=== PATIENT | female | born 1965 | race Caucasian/White ===

== ENCOUNTER → 2018-07-02 13:19 | Outpatient (CLI) | payer OTHER, SELFPAY ==
--- NOTE | 2018-07-02 13:28 | DI.RAD.S_ITS ---
PROCEDURE: XR LUMBAR SPINE 2-3V INDICATIONS: radiculating low back pain down left leg. TECHNIQUE: 3 views of the lumbar spine were acquired. COMPARISON: [facility], CR, SPINE LUMB 2 OR 3VW, 01/19/2015, 13:35. FINDINGS: Bones: No fracture or focal osseous destruction. Straightening of the normal cervical lordosis with endplate sclerosis and spurring. Mild lower facet arthropathy. No definite lumbar disc space narrowing is seen. Mild diffuse narrowing of the lower thoracic disc spaces Incidentally noted tubal ligation clips. 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 Overall, no interval progression. Lower lumbar facet arthropathy. Dictated by: Suresh Aldana M.D. on 07/02/2018 at 16:59 Approved by: Suresh Aldana M.D. on 07/02/2018 at 17:01
== END ==
PROVIDERS: Visit Provider Physician Assistant
DX: M51.16 Intervertebral disc disorders with radiculopathy, lumbar region (principal); M54.5 Low back pain; M47.26 Other spondylosis with radiculopathy, lumbar region
CPT/HCPCS: 72100

== ENCOUNTER → 2019-01-27 16:59 | Outpatient (CLI) | payer OTHER, SELFPAY ==
--- NOTE | 2019-01-27 17:00 | DI.MRI.S_ITS ---
PROCEDURE: MR LUMBAR SPINE WO CON INDICATIONS: LOW BACK PAIN TECHNIQUE: Noncontrast sagittal T1 spin echo and T2 fast echo, sagittal STIR, axial T1 and T2 fast spin echo through the lumbar spine. In cases with scoliosis, additional coronal T2 fast spin echo may be performed. COMPARISON: None. FINDINGS: Image quality: Excellent. Alignment and Curvature: There is normal bony alignment. Bone Marrow: Marrow is of normal overall signal. No acute vertebral body compression fractures. Spinal Cord: Conus medullaris terminates at the L1-L2 level. Visualized cord demonstrates normal signal and size. Paraspinous Soft Tissues: No paravertebral masses. T11-T12: No canal stenosis or foraminal stenosis. T12-L1: No canal stenosis or foraminal stenosis. L1-L2: Normal appearance. L2-L3: Normal appearance. L3-L4: Normal appearance. Mild facet hypertrophy. L4-L5: Mild disc bulge. No canal stenosis. Moderate left foraminal disc bulge mildly compressing on the exiting left L4 nerve root sleeve. Facet hypertrophy. L5-S1: No canal stenosis. Bilateral facet hypertrophy. Mild to moderate left foraminal narrowing with mild impression on the exiting left L5 nerve root sleeve. IMPRESSION: 1. No evidence of canal stenosis. 2. At L4-L5, and moderate left foraminal disc bulge mildly compresses the exiting left L4 nerve root sleeve. 3. L5-S1, there is left foraminal stenosis with mild impression on the exiting left L5 nerve root sleeve 4. Multilevel facet hypertrophy. Dictated by: Nicholas Green M.D. on 01/27/2019 at 17:44 Approved by: Nicholas Green M.D. on 01/27/2019 at 17:49
== END ==
PROVIDERS: Visit Provider Orthopaedic Surgery
DX: M51.26 Other intervertebral disc displacement, lumbar region (principal); M48.07 Spinal stenosis, lumbosacral region
CPT/HCPCS: 72148

== ENCOUNTER → 2020-11-09 07:34 | Outpatient (CLI) | payer OTHER, SELFPAY ==
[2020-11-09 08:11] LABS: Hematocrit 42.2 % (36-46); Hemoglobin 14.5 g/dL (12.0-16.0); Mean Corpuscular HGB Conc 34.4 % (30-36); Mean Corpuscular Hemoglobin 32.5 PG (26-34); Mean Corpuscular Volume 94.4 fL (80-100); Platelet Count 287 X10^3/uL (150-400); Red Blood Cell Count 4.47 X10^6/uL (4.0-5.2); Red Cell Distribution Width 12.7 % (11.6-14.8); White Blood Cell Count 7.7 X10^3/uL (4.5-11.0)
[2020-11-09 08:35] LABS: Alanine Aminotransferase 17 IU/L (<35); Albumin 4.3 g/dL (3.5-5.0); Albumin Globulin Ratio 1.5 (1.0-2.8); Alkaline Phosphatase 60 U/L (38-126); Aspartate Aminotransferase 25 IU/L (14-36); BUN Creatinine Ratio 26.7 (6-22); Bilirubin Total 0.7 mg/dL (0.2-1.3); Blood Urea Nitrogen 20 mg/dL (7-17); Calcium 9.1 mg/dL (8.4-10.2); Carbon Dioxide 27 mmol/L (22-32); Chloride 103 mmol/L (98-107); Cholesterol 286 mg/dL (140-199); Estimated Glomerular Filt Rate > 60.0 mL/min (>60); Globulin 2.9 g/dL (1.7-4.1); Glucose 117 mg/dL (70-100); HDL Cholesterol 83 mg/dL (40-60); HEMOLYSIS < 15 (0-50); LDL Cholesterol Calculated 174 mg/dL (<100); Sodium 137 mmol/L (137-145); Total Protein 7.2 g/dL (6.3-8.2); Triglycerides 147 mg/dL (35-150)
[2020-11-09 09:13] LABS: TSH w/ Reflex to FT4 4.45 uIU/mL (0.47-4.68)
[2020-11-13 16:08] LABS: Fecal Immunochemical Test Negative (Negative)
== END ==
PROVIDERS: PCP Registered Nurse Diabetes Educator; Referring Provider Registered Nurse Diabetes Educator; Visit Provider Registered Nurse Diabetes Educator
DX: Z00.00 Encounter for general adult medical examination without abnormal findings (principal)
CPT/HCPCS: 36415; 80053; 80061; 82274; 84443; 85027

== ENCOUNTER 2022-11-06 15:40 | Emergency (ER) | payer OTHER, MEDICAID, SELFPAY ==
[2022-11-06 16:00] VITALS: BP 185/82; PULSE 78; RESP 16; TEMP 36.7; O2SAT 96; BMI 23.6
--- NOTE | 2022-11-06 16:07 | DI.RAD.S_ITS ---
PROCEDURE: XR RIBS LT MIN 3V W CXR1V INDICATIONS: pain falls TECHNIQUE: 2 views of the left ribs were acquired, along with a single view chest. COMPARISON: None. FINDINGS: Surgical changes and devices: None. Bones and chest wall: No fractures or dislocations. No suspicious bony lesions. Overlying soft tissues appear unremarkable. Lungs and pleura: No pleural effusions or pneumothorax. Lungs appear clear. Mediastinum: Mediastinal contours appear normal. Heart size is normal. IMPRESSION: No acute displaced rib fracture identified. No pneumothorax. Dictated by: Herb Garrett M.D. on 11/06/2022 at 17:27 Approved by: Herb Garrett M.D. on 11/06/2022 at 17:29
--- NOTE | 2022-11-06 18:24 | ED.BACK ---
HPI - Back Pain/Injury General Chief Complaint: Back Pain/Injury Stated Complaint: lt side pain in ribs into lower back Time Seen by Provider: 11/06/22 18:14 Source: patient Related Data Home Medications Medication Instructions Recorded Confirmed No Known Home Medications 09/12/20 12/04/20 Allergies Allergy/AdvReac Type Severity Reaction Status Date / Time codeine Allergy Severe hives Verified 12/04/20 15:23 Patient History Medical History Dyslipidemia Impaired fasting blood sugar Low back pain Prolapse of female pelvic organs Social History Smoking Status: Former smoker alcohol intake: current Smoking Status: Former smoker alcohol intake frequency: 3 or more drinks per day Substance Use Type: does not use Exam Initial Vital Signs Initial Vital Signs: Vital Signs Temperature 98.1 F 11/06/22 16:00 Pulse Rate 78 11/06/22 16:00 Respiratory Rate 16 11/06/22 16:00 Blood Pressure 185/82 H 11/06/22 16:00 Pulse Oximetry 96 11/06/22 16:00 Oxygen Delivery Method Room Air 11/06/22 16:00 Course Orders Ordered: ED Orders 11/06/22 16:07 XR ribs LT min 3V w CXR1V Stat Vital Signs Vital signs: Vital Signs - 8 hr 11/06/22 16:00 Temperature 98.1 F Pulse Rate 78 Respiratory Rate 16 Blood Pressure 185/82 H Pulse Oximetry 96 Oxygen Delivery Method Room Air Discharge Plan Departure Prescriptions: No Action No Known Home Medications Referrals: Rah Macias ARNP [Primary Care Provider] -
--- NOTE | 2022-11-06 19:32 | ED.BACK ---
HPI - Back Pain/Injury <Cam Porter PA-C - Last Filed: 11/06/22 19:58> General Chief Complaint: Back Pain/Injury Stated Complaint: lt side pain in ribs into lower back Time Seen by Provider: 11/06/22 18:14 Source: patient History of Present Illness HPI Narrative: This is a 57-year-old female presents to the emergency department complaining of L sided rib and lumbar pain for the last couple of months. She states that the pain is ?unbearable? affecting the left ribs. States that she initially fell while ice skating which initially caused the pain. She denies any significant shortness of breath, chest pain, nausea, vomiting, or any other concerning signs or symptoms. Denies urinary or bowel incontinence, fevers, focal weakness, or saddle paresthesia. Related Data Home Medications Medication Instructions Recorded Confirmed No Known Home Medications 09/12/20 12/04/20 Allergies Allergy/AdvReac Type Severity Reaction Status Date / Time codeine Allergy Severe hives Verified 12/04/20 15:23 Review of Systems <Cam Porter PA-C - Last Filed: 11/06/22 19:58> Review of Systems Narrative: GENERAL: Denies chills, fatigue, malaise, fever, sweats. HEENT: Denies sinus pain, ear pain, sore throat, difficulty swallowing, dizziness. RESPIRATORY: Left rib pain, Denies dyspnea, cough, wheezing, hemoptysis, sputum. CARDIOVASCULAR: Denies chest pain, palpitations, orthopnea, edema, GASTROINTESTINAL: Denies nausea, vomiting, abdominal pain, diarrhea, constipation, melena. : Denies dysuria, frequency, incontinence, hematuria, urinary retention. MUSCULOSKELETAL: denies weakness, joint pain, or bony pain SKIN: Denies rash, skin lesions, or other NEUROLOGIC: Denies weakness, headache, numbness, change in speech, confusion, seizures, incoordination. PSYCHIATRIC: No concerning psychosocial issues. 12 point review of systems is negative except for those stated above Patient History <Cam Porter PA-C - Last Filed: 11/06/22 19:58> Medical History Dyslipidemia Impaired fasting blood sugar Low back pain Prolapse of female pelvic organs Social History Smoking Status: Former smoker alcohol intake: current Smoking Status: Former smoker alcohol intake frequency: 3 or more drinks per day Substance Use Type: does not use Exam <Cam Porter PA-C - Last Filed: 11/06/22 19:58> Narrative Exam Narrative: GENERAL: Well-developed patient, in mild distress. HEAD: Atraumatic. Normocephalic. EYES: Pupils equal round and reactive. Extraocular motions intact. No scleral icterus. No injection or drainage. ENT: Nose without bleeding, purulent drainage. Throat without erythema, tonsillar hypertrophy or exudate. Airway patent. NECK: Trachea midline. Non tender CARDIOVASCULAR: Regular rate and rhythm without murmurs, gallops, or rubs. RESPIRATORY: Tenderness to palpation to the left ribs. Clear to auscultation. Breath sounds equal bilaterally. No wheezes, rales, or rhonchi. GASTROINTESTINAL: Abdomen soft, non-tender, nondistended. EXTREMITIES: No edema or joint tenderness. BACK: Nontender without deformity or crepitance. No flank tenderness. NEURO: AOx3. SKIN: No rash or erythema of visible areas Initial Vital Signs Initial Vital Signs: Vital Signs Temperature 98.1 F 11/06/22 16:00 Pulse Rate 78 11/06/22 16:00 Respiratory Rate 16 11/06/22 16:00 Blood Pressure 185/82 H 11/06/22 16:00 Pulse Oximetry 96 11/06/22 16:00 Oxygen Delivery Method Room Air 11/06/22 16:00 <Gibran Boston DO - Last Filed: 11/08/22 06:42> Initial Vital Signs Initial Vital Signs: Vital Signs Temperature 98.1 F 11/06/22 16:00 Pulse Rate 78 11/06/22 16:00 Respiratory Rate 16 11/06/22 16:00 Blood Pressure 185/82 H 11/06/22 16:00 Pulse Oximetry 96 11/06/22 16:00 Oxygen Delivery Method Room Air 11/06/22 16:00 Course <Cam Porter PA-C - Last Filed: 11/06/22 19:58> Orders Ordered: ED Orders 11/06/22 16:07 XR ribs LT min 3V w CXR1V Stat Vital Signs Vital signs: Vital Signs - 8 hr 11/06/22 16:00 Temperature 98.1 F Pulse Rate 78 Respiratory Rate 16 Blood Pressure 185/82 H Pulse Oximetry 96 Oxygen Delivery Method Room Air <Gibran Boston DO - Last Filed: 11/08/22 06:42> Orders Ordered: ED Orders 11/06/22 16:07 XR ribs LT min 3V w CXR1V Stat Vital Signs Vital signs: Vital Signs - 8 hr 11/06/22 16:00 Temperature 98.1 F Pulse Rate 78 Respiratory Rate 16 Blood Pressure 185/82 H Pulse Oximetry 96 Oxygen Delivery Method Room Air MDM - Back Pain/Injury <Cam Porter PA-C - Last Filed: 11/06/22 19:58> Imaging Data Chest x-ray: Radiologist's Impression: [address] [address] XRay Report Signed Patient: Aurora Reed MR#: [id number] : 1965 Acct:[id number] Age/Sex: 57 / F Date of Service: 11/06/22 Loc: ED Accession Number: [id number] ?? Procedure: XR ribs LT min 3V w CXR1V Ordering Provider: Rui Armenta MD PROCEDURE:? XR RIBS LT MIN 3V W CXR1V ? INDICATIONS:? pain falls ? TECHNIQUE:? 2 views of the left ribs were acquired, along with a single view chest.? ? COMPARISON:? None. ? FINDINGS:? ? Surgical changes and devices:? None.? ? Bones and chest wall:? No fractures or dislocations.? No suspicious bony lesions.? Overlying soft tissues appear unremarkable.? ? Lungs and pleura:? No pleural effusions or pneumothorax.? Lungs appear clear.? ? Mediastinum:? Mediastinal contours appear normal.? Heart size is normal.? ? IMPRESSION:? No acute displaced rib fracture identified.? No pneumothorax. ? ? Dictated by: Herb Garrett M.D. on 11/06/2022 at 17:27 ? ? Approved by: Herb Garrett M.D. on 11/06/2022 at 17:29 ? MDM Narrative Medical decision making narrative: MDM * differential diagnosis includes but not limited to rib fracture rib contusion, pneumothorax, chest wall injury * Prior records reviewed: Patient has not been here for similar complaints in the past * My lab interpretation: None obtained * My imgaing interpretation: Rib x-ray negative for any fractures * Clinical Decision Rules/Scores evaluated: None * Independent discussions with: None ED Course: This is a 57-year-old female presents to the emergency department due to left-sided rib pain after falling while ice-skating a few months ago. She states that the pain has not improved. She denies any significant shortness of breath or any numbness throughout her body. She does denies any chest pains. Low concern for any kind of pneumothorax. Patient did not present with any concerning symptoms such as urinary or bowel incontinence, focal weakness, saddle paresthesia, or any other concerning signs or symptoms. Suspect rib contusion. Rib series negative for any fractures. Shared Decision Making: Discussed plan with patient who is comfortable plan for discharge Social Considerations: None Disposition: Discharged to home Discharge Plan Departure Patient Disposition: Home Clinical Impression: Contusion of rib Instructions: DI for Rib Contusion Activity Restrictions/Additional Instructions: Thank you for coming to the [facility] Emergency Department today. As discussed your rib x-rays came back negative for any kind of fractures. I suspect he 0; contusion, please read the attached instructions for more information about this. Please use ibuprofen Tylenol as needed for the pain. Please follow-up with your primary care provider for further evaluation pain continues. I hope you feel better soon. Prescriptions: No Action No Known Home Medications Referrals: Rah Macias ARNP [Primary Care Provider] - Stand Alone Forms: Patient Portal/API <Gibran Boston DO - Last Filed: 11/08/22 06:42> [facility] ED Attending Kassi Attestation: I was immediately available in the department for consultation. Documentation has been reviewed. I agree with assessment and plan.
[2022-11-06 20:01] VITALS: BP 158/74; PULSE 68; RESP 16; TEMP 36.3; O2SAT 98
== END 2022-11-06 20:00 | disposition home or self-care (01) ==
PROVIDERS: Emergency Provider Physician Assistant Medical; PCP Registered Nurse Diabetes Educator
DX: S20.212A Contusion of left front wall of thorax, initial encounter (principal); W00.0XXA Fall on same level due to ice and snow, initial encounter; Y93.21 Activity, ice skating
CPT/HCPCS: 71101; 99281; 99283

== ENCOUNTER → 2022-12-31 13:51 | Outpatient (CLI) | payer OTHER, MEDICAID, SELFPAY ==
--- NOTE | 2022-12-31 13:52 | DI.US.S_ITS ---
PROCEDURE: US EXTREMITY NONVASC LOWER LT INDICATIONS: Please eval for abscess vs. hematoma posterior distal thigh TECHNIQUE: Real-time scanning was performed of the left posterior thigh, with image documentation. COMPARISON: None. FINDINGS: Ultrasound was performed of the area of interest in the left posterior thigh There is a complex fluid collection measuring 9.3 x 1.8 x 6.0 cm in the area of concern, compatible with a hematoma. On Doppler ultrasound, there is no increased peripheral vascularity. IMPRESSION: 1. A 9.3 x 1.8 x 6.0 cm complex fluid collection in the posterior left thigh, compatible with hematoma in this patient with recent trauma. On Doppler ultrasound, there is no increased peripheral vascularity. Less likely, it could represent developing abscess. Recommend clinical correlation and follow-up. Dictated by: Johnny Pearson M.D. on 12/31/2022 at 16:39 Approved by: Johnny Pearson M.D. on 12/31/2022 at 16:43
== END ==
PROVIDERS: PCP Registered Nurse Diabetes Educator; Referring Provider Registered Nurse Diabetes Educator; Visit Provider Registered Nurse Diabetes Educator
DX: T14.8XXA Other injury of unspecified body region, initial encounter (principal); L08.9 Local infection of the skin and subcutaneous tissue, unspecified; M79.89 Other specified soft tissue disorders; M79.605 Pain in left leg
CPT/HCPCS: 76882

== ENCOUNTER → 2023-07-17 13:52 | Outpatient (CLI) | payer OTHER, MEDICAID, SELFPAY ==
--- NOTE | 2023-07-17 13:53 | DI.MG.S_ITS ---
BILATERAL DIGITAL DIAGNOSTIC MAMMOGRAM 3D/2D: 07/17/2023 CLINICAL: Diffuse left breast pain. Baseline exam. Family history of breast cancer. No prior exams were available for comparison. There are scattered areas of fibroglandular density in both breasts (category b / 25%-50% glandular tissue). There is a possible irregular asymmetry with an indistinct margin in the left breast at 3 o'clock posterior depth. This is not seen in additional views. This correlates as an incidental finding. No other significant masses, calcifications, or other findings are seen in either breast. Specifically, no finding to explain the patient's diffuse left breast pain. IMPRESSION: INCOMPLETE: NEEDS ADDITIONAL IMAGING EVALUATION The possible irregular asymmetry in the left breast is consistent with fibroglandular tissue and is indeterminate. An ultrasound is recommended. This was performed immediately following this exam. There is no abnormality seen in the left breast to correspond with the diffuse pain. Based on Tyrer-Cuzick model (a risk assessment model), the patient's lifetime risk is 22.3% and her 10 year risk is 8.6%. If a patient has an elevated risk, a more comprehensive evaluation should be considered and/or a referral to a genetic counselor. The [place] [employer], [place] [employer], and NCCN Guidelines advise the consideration of Breast MRI as an adjunct to screening mammography in patients whose Lifetime risk to develop breast cancer is 20% or higher. This exam was interpreted at Station ID: [id number]. NOTE: For mammograms, a report in lay terms will be sent to the patient. Approximately 15% of breast malignancies will not be visualized mammographically. In the management of a palpable breast mass, a negative mammogram must not discourage biopsy of a clinically suspicious lesion. Electronically Signed By: Paige cabello/:07/17/2023 14:40:30 ACR BI-RADS Category 0: Incomplete 3340F
--- NOTE | 2023-07-17 13:53 | DI.US.S_ITS ---
LIMITED ULTRASOUND OF LEFT BREAST: 07/17/2023 CLINICAL: Diffuse left breast pain. Comparison is made to exam dated: 07/17/2023 mammogram - [facility]. Color flow ultrasound of the left breast 3 o'clock region was performed. Adam scale images of the real-time examination were reviewed. No suspicious findings in the area of the left breast of possible asymmetry. There is a 1.1 cm oval cyst in the left breast at 3 o'clock middle depth. This oval cyst is anechoic with an abrupt boundary and posterior acoustic enhancement. This correlates as an incidental finding. Color flow imaging demonstrates that there is an adjacent vascularity. There also is a benign normal lymph node in the left breast at 3 o'clock posterior depth. This normal lymph node displays fatty hilum. This correlates as an incidental finding. Color flow imaging demonstrates that there is vascularity present. IMPRESSION: BENIGN The incidental 1.1 cm cyst in the left breast at 3 o'clock middle depth is consistent with a simple cyst and is benign. The incidental normal lymph node in the left breast at 3 o'clock posterior depth is consistent with a lymph node and is benign. There is no abnormality seen in the right breast to correspond with the possible mammography finding at 3 o'clock which is consistent with normal fibroglandular tissue. No explanation for breast pain. Return to annual mammogram screening schedule is recommended. Findings and recommendations were conveyed to the patient at time of exam. This exam was interpreted at Station ID: [id number]. Electronically Signed By: Paige cabello/:07/17/2023 15:21:20 letter sent: Normal Exam Ultrasound BI-RADS: 2 Benign
== END ==
PROVIDERS: PCP Registered Nurse Diabetes Educator; Referring Provider Registered Nurse Diabetes Educator; Visit Provider Registered Nurse Diabetes Educator
DX: R92.2 Inconclusive mammogram (principal); N63.20 Unspecified lump in the left breast, unspecified quadrant; N64.4 Mastodynia; N60.02 Solitary cyst of left breast
CPT/HCPCS: 76642; 77066; G0279

== ENCOUNTER → 2024-02-18 08:40 | Outpatient (CLI) | payer OTHER, MEDICAID, SELFPAY ==
--- NOTE | 2024-02-18 08:43 | DI.MRI.S_ITS ---
BREAST MRI OF BOTH BREASTS: 02/18/2024 CLINICAL: Elevated Tyrer- Cuzick Risk. Comparison is made to exams dated: 07/17/2023 ultrasound, 07/17/2023 mammogram - [facility], 07/09/2012 mammogram, and 04/01/2008 mammogram - [facility]. PROCEDURE: MR BREAST BI WO/W CON INDICATIONS: Elevated Tyrer-Cuzick Risk TECHNIQUE: The patient was placed prone in a dedicated breast imaging coil. Precontrast axial STIR and 3D FLASH without fat saturation sequences were obtained. Both before and after bolus injection of contrast, sequential 1-minute axial 3D FLASH with fat saturation sequences for 3 time points, with subtraction images and maximum intensity projections (MIP's) generated. Delayed sagittal FLASH images with fat saturation were also obtained. FINDINGS: Image quality: Diagnostic. There is scattered fibroglandular density. There is mild background parenchymal enhancement. Right breast: At the 12 o'clock position of the right breast anterior depth, there is an 8 x 8 millimeter oval circumscribed mass (15/66, 7/79) with possible dark internal septations and without washout kinetics. No other suspicious mass, non-mass enhancement, or focus. Left breast: Presumed cyst in the lateral breast posterior depth. Immediately posterior to the region at 3 o'clock, there is a focal region of non mass enhancement measuring about 2 centimeters (13/60). No suspicious mass or focus otherwise. Miscellaneous: No suspicious findings in the partially visualized anterior mediastinum and upper abdomen. There are no pathologically enlarged lymph nodes by size criteria. Computer-aided detection, including computer algorithm analysis of MRI image data for lesion detection and characterization, pharmacokinetic analysis, with further physician review for interpretation, was performed. IMPRESSION: INCOMPLETE: NEEDS ADDITIONAL IMAGING EVALUATION Right breast 12 o'clock 8 x 8 millimeter oval circumscribed mass with possible dark internal septation (15/66, 7/79). This is probably a fibroadenoma. A second-look ultrasound could be obtained. Left breast posterior depth 3 o'clock focal region of non mass enhancement spanning about 2 centimeters, probably asymmetric fibroglandular enhancement, probably benign. A six-month MRI is recommended. BIRADS 0 COMMENT: The imaging literature indicates that a negative contrast breast MRI examination has a high sensitivity and a moderate specificity for detecting and excluding invasive carcinomas to a detection threshold of 3-5 mm; nonetheless, appropriate clinical and mammographic follow-up are recommended. MRI is not sensitive for detecting DCIS (ductal carcinoma in situ) and may not detect large invasive neoplasms that show only minimal enhancement such as mucinous carcinoma. If there are suspicious calcifications or clinically worrisome palpable masses, then biopsy should still be considered. Invasive neoplasms can be hidden by co-existent and benign enhancement caused by mastitis, hormone therapy effects, radiation therapy, , and recent biopsy or surgery. False positive examinations can occur in a number of circumstances, including breasts that have recently been subject to invasive procedures and those that contain atypical ductal hyperplasia, hormonally stimulated glandular tissue, fat necrosis, or radial scars. This exam was interpreted at Station ID: [id number]. Electronically Signed By: Naeem Frey M.D. lc/:02/19/2024 07:37:24 letter sent: Additional Imaging Needed ACR BI-RADS Category 0: Incomplete 3340F
== END ==
LOC: MRI 08:41
PROVIDERS: PCP Registered Nurse Diabetes Educator; Referring Provider Registered Nurse Diabetes Educator; Visit Provider Registered Nurse Diabetes Educator
DX: Z91.89 Other specified personal risk factors, not elsewhere classified (principal); Z12.39 Encounter for other screening for malignant neoplasm of breast; N63.15 Unspecified lump in the right breast, overlapping quadrants
CPT/HCPCS: 77049; A9579

== ENCOUNTER → 2024-04-28 07:32 | Outpatient (CLI) | payer OTHER, MEDICAID, SELFPAY ==
--- NOTE | 2024-04-28 07:33 | DI.US.S_ITS ---
LIMITED ULTRASOUND OF RIGHT BREAST: 04/28/2024 CLINICAL: Patient returns today to evaluate a mass in the right breast seen on MRI 02-18-24. Comparison is made to exams dated: 02/18/2024 breast MRI, 07/17/2023 mammogram - [facility], 07/09/2012 mammogram, 04/01/2008 mammogram, and 11/19/2000 mammogram - [facility]. Color flow and real-time ultrasound of the right breast 12 o'clock region were performed. Adam scale images of the real-time examination were reviewed. There is a 0.9 cm x 0.6 cm x 0.5 cm oval mass with a circumscribed margin in the right breast at 12 o'clock, 4 cm from the nipple. This oval mass is hypoechoic. This correlates with mass seen on recent breast MRI 02/18/2024. Color flow imaging demonstrates that there is vascularity present. IMPRESSION: PROBABLY BENIGN Right breast 0.9 cm oval circumscribed mass at 12 o'clock, 4 cm from the nipple. Finding resembles a fibroadenoma and is probably benign. Recommend follow-up ultrasound in August 2024 when patient will be due for bilateral mammogram to demonstrate stability. Findings and recommendations were conveyed to the patient during today's evaluation. This exam was interpreted at Station ID: [id number]. Electronically Signed By: Jodie Quintero M.D., Ph.D. eb/:04/28/2024 09:16:32 letter sent: Followup Recommended Ultrasound BI-RADS: 3 Probably benign
== END ==
LOC: US 07:32
PROVIDERS: PCP Registered Nurse Diabetes Educator; Referring Provider Registered Nurse Diabetes Educator; Visit Provider Registered Nurse Diabetes Educator
DX: R92.8 Other abnormal and inconclusive findings on diagnostic imaging of breast (principal); N63.15 Unspecified lump in the right breast, overlapping quadrants
CPT/HCPCS: 76642

== ENCOUNTER → 2024-08-20 12:04 | Outpatient (CLI) | payer OTHER, SELFPAY ==
--- NOTE | 2024-08-20 12:04 | DI.RAD.S_ITS ---
PROCEDURE: XR CHEST 2V INDICATIONS: Cough TECHNIQUE: 2 views of the chest were acquired. COMPARISON: None. FINDINGS: Surgical changes and devices: None. Lungs and pleura: Lungs are clear. No pleural effusions or pneumothorax. Mediastinum: Mediastinal contours are normal. Heart size is normal. Bones and chest wall: No suspicious bony abnormalities. Soft tissues appear unremarkable. IMPRESSION: No acute cardiopulmonary abnormality is seen. Dictated by: Bar Olivier M.D. on 08/20/2024 at 15:18 Approved by: Bar Olivier M.D. on 08/20/2024 at 15:18
== END ==
PROVIDERS: PCP Registered Nurse Diabetes Educator; Referring Provider Nurse Practitioner Family; Visit Provider Nurse Practitioner Family
DX: R05.9 Cough, unspecified (principal)
CPT/HCPCS: 71046

== ENCOUNTER → 2024-09-09 16:21 | Outpatient (CLI) | payer OTHER, SELFPAY ==
--- NOTE | 2024-09-09 16:25 | DI.RAD.S_ITS ---
PROCEDURE: XR CHEST 2V INDICATIONS: Cough TECHNIQUE: 2 views of the chest were acquired. COMPARISON: Merged With [facility], CR, XR CHEST 2V, 08/20/2024, 12:19. FINDINGS: Surgical changes and devices: None. Lungs and pleura: Lungs are clear. No pleural effusions or pneumothorax. Mediastinum: Mediastinal contours are normal. Heart size is normal. Bones and chest wall: No suspicious bony abnormalities. Soft tissues appear unremarkable. IMPRESSION: No acute cardiopulmonary abnormality is seen. Dictated by: Lance Blackburn M.D. on 09/09/2024 at 16:42 Approved by: Lance Blackburn M.D. on 09/09/2024 at 16:43
== END ==
PROVIDERS: PCP Registered Nurse Diabetes Educator; Referring Provider Nurse Practitioner Family; Visit Provider Nurse Practitioner Family
DX: R05.9 Cough, unspecified (principal)
CPT/HCPCS: 71046

== ENCOUNTER → 2024-09-14 09:20 | Outpatient (CLI) | payer OTHER, SELFPAY ==
--- NOTE | 2024-09-14 09:21 | DI.US.S_ITS ---
LIMITED ULTRASOUND OF RIGHT BREAST AND AXILLA: 09/14/2024 CLINICAL: 6MO F/U RT BREAST NODULE 12:00 4CMFN. Comparison is made to exams dated: 09/14/2024 mammogram, 04/28/2024 ultrasound, 02/18/2024 breast MRI, and 07/17/2023 mammogram - [facility]. Color flow and real-time ultrasound of the right breast 12 o'clock, and axilla regions were performed. Adam scale images of the real-time examination were reviewed. There is a 1 cm x 0.6 cm x 0.5 cm oval mass with an indistinct margin in the right breast at 12 o'clock anterior depth 4 cm from the nipple. This oval mass is hypoechoic. This abnormality is stable to slightly increased in size and correlates with mammography and breast MRI findings. The abnormality appear more hypoechoic. Color flow imaging demonstrates that there is vascularity present. No significant abnormalities were seen sonographically in the right axilla. IMPRESSION: SUSPICIOUS The 1 cm mass in the right breast has a differential diagnosis of a fibroadenoma and is at a low suspicion for malignancy. The mass appears more hypoechoic with less defined margins and maybe slightly increased in size. An ultrasound guided biopsy is recommended. No enlarged right axillary lymph nodes. Exam findings were discussed with the patient. This exam was interpreted at Station ID: [id number]. Electronically Signed By: Nael Castellon M.D. slc/:09/14/2024 10:52:06 letter sent: Biopsy Required ACR BI-RADS Category 4A: Suspicious
--- NOTE | 2024-09-14 09:21 | DI.MG.S_ITS ---
BILATERAL DIGITAL DIAGNOSTIC MAMMOGRAM 3D/2D SHORT-TERM FOLLOW-UP: 09/14/2024 CLINICAL: Short term follow up of the right breast, due for bilateral imaging. Comparison is made to exams dated: 02/18/2024 breast MRI, 07/17/2023 mammogram - [facility], 07/09/2012 mammogram - [facility], and 04/28/2024 ultrasound - [facility]. There are scattered areas of fibroglandular density (category b / 25%-50% glandular tissue). There is a stable oval mass with an obscured and circumscribed margin in the right breast at 12 o'clock anterior depth. No other significant masses, calcifications, or other findings are seen in either breast. IMPRESSION: INCOMPLETE: NEED ADDITIONAL IMAGING EVALUATION The stable oval mass in the right breast is indeterminate. A targeted ultrasound is recommended and will immediately follow. Based on the Tyrer Cuzick model (a risk assessment model) the patient's lifetime risk is 17.9% and her 10 year risk is 7.1%. According to the ACR, ACS, and NCCN guidelines, an annual breast MRI exam along with mammogram is recommended if the patient's lifetime risk is 20% or greater. This exam was interpreted at Station ID: [id number]. NOTE: For mammograms, a report in lay terms will be sent to the patient. Approximately 15% of breast malignancies will not be visualized mammographically. In the management of a palpable breast mass, a negative mammogram must not discourage biopsy of a clinically suspicious lesion. Electronically Signed By: Nael Castellon M.D. slc/:09/14/2024 10:19:55 letter sent: Additional Imaging Needed ACR BI-RADS Category 0: Incomplete: Need Additional Imaging Evaluation
== END ==
PROVIDERS: PCP Registered Nurse Diabetes Educator; Referring Provider Registered Nurse Diabetes Educator; Visit Provider Registered Nurse Diabetes Educator
DX: R92.8 Other abnormal and inconclusive findings on diagnostic imaging of breast (principal); N63.15 Unspecified lump in the right breast, overlapping quadrants; Z87.898 Personal history of other specified conditions
CPT/HCPCS: 76642; 77066; G0279

== ENCOUNTER → 2024-10-13 08:00 | Outpatient (CLI) | payer OTHER, SELFPAY ==
--- NOTE | 2024-10-13 | PATH_ITS ---
[facility] Accession Number: [id number] No. of containers..01 Tissue . 01 Material submitted: . breast - RIGHT BREAST MASS 12:00 . 01 Clinical history: . RIGHT BREAST MASS 12:00 4CMFN . 01 Diagnosis: RIGHT BREAST, 12 O'CLOCK, BIOPSY: Features consistent with fibroadenoma, see comment. Negative for atypical hyperplasia, carcinoma in-situ, and invasive carcinoma. MRV 10/15/2024 1643 Local . 01 Comment: Sections show a fibroadenoma with focal involvement by benign fibrocystic changes, including adenosis and fibrosis. Immunohistochemistry is performed for cytokeratin MARY, p63, and myosin and all are appropriately positive, supporting the above diagnosis. . Technical Note: The immunohistochemical stains reported were performed with appropriate controls at [facility] ([address], [facility] [address]). This test was developed, and the performance characteristics were validated by [facility]. It has not been cleared or approved by the Food and Drug Administration. . 01 Electronically signed: . Shawanda Pineda DO, Pathologist NPI- [id number] . 01 Gross description: . Received is one formalin-filled container labeled with the patient's name labeled right breast 12 o'clock 4 cm FN. The specimen is received with plastic filter in container and sample in container, and consists of multiple yellow-sarmiento to sarmiento-ferrell pieces of soft tissue which range in size from 0.1 x 0.1 x 0.1 cm to ___.3 x 0.4 x 0.2 cm. All fragments are totally submitted in cassette A1. . The specimen was removed on 10/13/2024 at 0958 hours. Time in formalin not provided. Cold ischemic time cannot be calculated. Total fixation time approximately 16 hours. ([id number]) /TASIA 10/14/2024 0621 Local . 01 Pathologist provided ICD-10: N63.10 . 01 CPT . 221444, H00974, H01036 Performed at: [address] [address], [place], [place] [id number] MD Bar Yost MD Phone: [phone]
--- NOTE | 2024-10-13 08:02 | DI.US.S_ITS ---
ULTRASOUND GUIDED BIOPSY RIGHT BREAST USING VACUUM DEVICE WITH MARKING DEVICE INSERTED: 10/13/2024 CLINICAL: Right breast mass. PATIENT CONSENT: Risks (minor bleeding, infection, vasovagal reaction and repeat procedure), benefits and alternatives were explained to the patient and written informed consent was obtained. Correlation is made to exams dated: 09/14/2024 ultrasound, 09/14/2024 mammogram, 04/28/2024 ultrasound, 02/18/2024 breast MRI, 07/17/2023 mammogram - [facility], and 07/09/2012 mammogram - [facility] [place]. An ultrasound guided biopsy using real-time ultrasound was performed for the 1 cm x 0.6 cm x 0.5 cm mass located in the right breast at 12 o'clock anterior depth 4 cm from the nipple. The skin was prepped in the usual manner. The abnormality was approached from the lateral aspect. A biopsy needle was placed adjacent to the abnormality under ultrasound guidance. Once the needle was documented to be in the correct location, a specimen was obtained using a vacuum assisted device. A clip was inserted into the biopsy cavity. The specimen was sent to the laboratory for pathological analysis. IMPRESSION: ULTRASOUND GUIDED BIOPSY BENIGN Ultrasound guided biopsy of the 1 cm x 0.6 cm x 0.5 cm mass in the right breast at 12 o'clock anterior depth 4 cm from the nipple was successful. Pathology indicates benign fibroadenoma (FA). Pathology results are concordant with imaging findings. Recommend return to routine annual mammogram screening (due September 2025). This exam was interpreted at Station ID: [id number]. Mathew Quintero M.D., Ph.D. jayesh/:10/19/2024 08:07:40
[2024-10-13 08:46] LABS: Appearance Urine UA CLEAR; Bilirubin Urine UA NEGATIVE (NEGATIVE); Color Urine UA YELLOW; Glucose Urine UA NEGATIVE (Negative); Ketones Urine UA NEGATIVE (NEGATIVE); Leukocyte Esterase Urine UA NEGATIVE (NEGATIVE); Nitrite Urine UA NEGATIVE (Negative); Occult Blood Urine UA NEGATIVE (Negative); Protein Urine UA NEGATIVE (Negative); Specific Gravity Urine UA <=1.005 (1.000-1.035); Urobilinogen Urine UA 0.2 E.U./dL (0.2)
[2024-10-13 08:56] LABS: Urine Volume 10mL (spun); pH Urine UA 5.5 (4.5-8.0)
[2024-10-13 08:56] LABS: Add Manual Diff / Slide Review NO; Basophils Absolute Auto 100 /uL (0-100); Basophils Percent Auto 0.7 % (0-2); Eosinophils Absolute Auto 500 /uL (0-450); Eosinophils Percent Auto 6.2 % (2-4); Hematocrit 41.5 % (36-46); Hemoglobin 14.4 g/dL (12.0-16.0); Lymphocytes Absolute Auto 2300 /uL (1100-4500); Lymphocytes Percent Auto 28.9 % (25-40); Mean Corpuscular HGB Conc 34.6 % (30-36); Mean Corpuscular Volume 95.2 fL (80-100); Monocytes Absolute Auto 600 /uL (0-900); Neutrophils Absolute Auto 4500 /uL (1500-7000); Neutrophils Percent Auto 56.2 % (50-75); Platelet Count 269 X10^3/uL (150-400); Red Blood Cell Count 4.36 X10^6/uL (4.0-5.2); Red Cell Distribution Width 13.4 % (11.6-14.8); White Blood Cell Count 8.1 X10^3/uL (4.5-11.0)
[2024-10-13 08:57] LABS: Bacteria Urine None Seen; Culture Indicated Urine Cult Not Indicated; RBC Urine None Seen (0-5/HPF); Squamous Epithelial Cell Urine None Seen (0-5/HPF); WBC Urine None Seen (0-5/HPF)
[2024-10-13 09:19] LABS: Erythrocyte Sedimentation Rate 6 MM/HR (0-20)
[2024-10-13 09:25] LABS: Alanine Aminotransferase 32 IU/L (<35); Albumin 4.4 g/dL (3.5-5.0); Albumin Globulin Ratio 1.8 (1.0-2.8); Alkaline Phosphatase 47 U/L (38-126); Aspartate Aminotransferase 32 IU/L (14-36); BUN Creatinine Ratio 8.4 (6-22); Bilirubin Total 0.6 mg/dL (0.2-1.3); Blood Urea Nitrogen 7 mg/dL (7-17); C-Reactive Protein Quant < 0.5 mg/dL (<1.0); Calcium 9.4 mg/dL (8.4-10.2); Carbon Dioxide 26 mmol/L (22-32); Chloride 103 mmol/L (98-107); Estimated Glomerular Filt Rate > 60 mL/min (>60); Globulin 2.5 g/dL (1.7-4.1); Glucose 104 mg/dL (70-100); HEMOLYSIS < 15 (0-50); Potassium 3.8 mmol/L (3.4-5.1); Sodium 138 mmol/L (137-145); Total Protein 6.9 g/dL (6.3-8.2)
[2024-10-14 17:36] LABS: DNA (DS) Antibody <1 IU/mL (0-9); SS A Ro Sjogrens Antibody < 0.2 AI (0.0-0.9); SS B La Sjogrens Antibody < 0.2 AI (0.0-0.9)
[2024-10-16 15:11] LABS: ANA Screen, IFA Negative (.)
== END ==
PROVIDERS: PCP Registered Nurse Diabetes Educator; Referring Provider Registered Nurse Diabetes Educator; Visit Provider Registered Nurse Diabetes Educator
DX: R92.8 Other abnormal and inconclusive findings on diagnostic imaging of breast (principal); D24.1 Benign neoplasm of right breast; R21 Rash and other nonspecific skin eruption; M32.9 Systemic lupus erythematosus, unspecified
CPT/HCPCS: 19083; 36415; 80053; 81001; 83516; 85025; 85651; 86038; 86140; 86225; 86235

== ENCOUNTER → 2024-11-19 15:10 | Outpatient (CLI) | payer OTHER, SELFPAY ==
--- NOTE | 2024-11-19 15:11 | DI.RAD.S_ITS ---
PROCEDURE: XR CHEST 2V INDICATIONS: Cough x 3 weeks, worsening TECHNIQUE: 2 views of the chest were acquired. COMPARISON: [facility], CR, XR CHEST 2V, 09/09/2024, 16:26. [facility], CR, XR CHEST 2V, 08/20/2024, 12:19. FINDINGS: Surgical changes and devices: None. Lungs and pleura: Lungs are clear. No pleural effusions or pneumothorax. Mediastinum: Mediastinal contours are normal. Heart size is normal. Bones and chest wall: No suspicious bony abnormalities. Soft tissues appear unremarkable. IMPRESSION: No acute cardiopulmonary abnormality is seen. Dictated by: Lance Blackburn M.D. on 11/19/2024 at 15:53 Approved by: Lance Blackburn M.D. on 11/19/2024 at 15:53
== END ==
PROVIDERS: PCP Registered Nurse Diabetes Educator; Referring Provider Nurse Practitioner Family; Visit Provider Nurse Practitioner Family
DX: R05.9 Cough, unspecified (principal)
CPT/HCPCS: 71046

== ENCOUNTER 2024-11-26 11:27 | Emergency (ER) | payer OTHER, SELFPAY ==
--- NOTE | 2024-11-26 11:31 | DI.RAD.S_ITS ---
1PROCEDURE: XR CHEST 1V INDICATIONS: chest pain TECHNIQUE: One view of the chest was acquired. COMPARISON: [facility], CR, XR CHEST 2V, 11/19/2024, 14:42. [facility], CR, XR CHEST 2V, 09/09/2024, 16:26. FINDINGS AND IMPRESSION: On this single view study, no consolidation or pleural effusion is identified. Normal heart size. Mild degenerative osseous changes. Dictated by: Naeem Frey M.D. on 11/26/2024 at 11:51 Approved by: Naeem Frey M.D. on 11/26/2024 at 11:51
--- NOTE | 2024-11-26 11:31 | EKG_ITS ---
[address] [address] Test Date: 2024-11-26 Pat Name: Aurora Reed Department: Room: Gender: Female Layout Inspector: JOANA : 1965 Requested By: Order Number: [id number] Reading MD: Doyle Fonseca MD Measurements Intervals [place] Rate: 72 P: 41 CA: 112 QRS: 38 QRSD: 72 T: 52 QT: 402 QTc: 440 Interpretive Statements Normal sinus rhythm Electronically Signed On 11-26-2024 13:45:39 PDT by Doyle Fonseca MD
[2024-11-26 11:33] VITALS: PULSE 78; O2SAT 98
[2024-11-26 11:34] VITALS: BP 183/88; PULSE 74; O2SAT 98
[2024-11-26 11:36] VITALS: BP 183/88; PULSE 79; RESP 18; TEMP 36.6; O2SAT 97; BMI 29.6
[2024-11-26 11:38] VITALS: BP 180/78; PULSE 74; O2SAT 97
[2024-11-26 11:53] LABS: Add Manual Diff / Slide Review NO; Basophils Absolute Auto 100 /uL (0-100); Basophils Percent Auto 0.9 % (0-2); Eosinophils Absolute Auto 900 /uL (0-450); Eosinophils Percent Auto 9.5 % (2-4); Hematocrit 42.6 % (36-46); Hemoglobin 14.5 g/dL (12.0-16.0); Lymphocytes Absolute Auto 3000 /uL (1100-4500); Lymphocytes Percent Auto 33.1 % (25-40); Mean Corpuscular HGB Conc 34.1 % (30-36); Mean Corpuscular Hemoglobin 32.6 PG (26-34); Mean Corpuscular Volume 95.6 fL (80-100); Monocytes Absolute Auto 500 /uL (0-900); Monocytes Percent Auto 5.6 % (3-14); Neutrophils Absolute Auto 4600 /uL (1500-7000); Neutrophils Percent Auto 50.9 % (50-75); Platelet Count 336 X10^3/uL (150-400); Red Blood Cell Count 4.46 X10^6/uL (4.0-5.2); White Blood Cell Count 9.1 X10^3/uL (4.5-11.0)
[2024-11-26 11:59] LABS: INR 0.9 (0.9-1.3); Prothrombin Time 10.2 SECONDS (9.4-12.5)
[2024-11-26 12:01] LABS: PTT Partial Thromboplastin Tim 33 SECONDS (25.1-36.5)
[2024-11-26 12:04] LABS: Alanine Aminotransferase 19 IU/L (<35); Albumin 4.6 g/dL (3.5-5.0); Albumin Globulin Ratio 1.6 (1.0-2.8); Alkaline Phosphatase 59 U/L (38-126); Aspartate Aminotransferase 27 IU/L (14-36); BUN Creatinine Ratio 24.1 (6-22); Bilirubin Total 0.9 mg/dL (0.2-1.3); Blood Urea Nitrogen 19 mg/dL (7-17); Calcium 9.1 mg/dL (8.4-10.2); Carbon Dioxide 23 mmol/L (22-32); Chloride 104 mmol/L (98-107); Creatine Kinase 70 U/L (30-135); Estimated Glomerular Filt Rate > 60 mL/min (>60); Globulin 2.9 g/dL (1.7-4.1); Glucose 113 mg/dL (70-100); HEMOLYSIS < 15 (0-50); Lipase 78 U/L (23-300); Magnesium 1.7 mg/dL (1.6-2.3); Sodium 137 mmol/L (137-145); Total Protein 7.5 g/dL (6.3-8.2)
--- NOTE | 2024-11-26 12:04 | PC.NURSE ---
Pt c/o CP exacerbated by cough. Pt reports she had a breast biopsy a few weeks ago; denies complications. Pt states she has been having ongoing cough on and off since August. Pt reports she was treated in August w/ steroids.
[2024-11-26 12:16] LABS: NT-proBNP (BNP-Adult 18+) 74 pg/mL (<125); Troponin I < 0.012 ng/mL (0.01-0.034)
--- NOTE | 2024-11-26 12:59 | ED.CHESTPAIN ---
HPI - Chest Pain <Cleo Maynard PA-C - Last Filed: 11/26/24 14:06> General Chief Complaint: Chest Pain Stated Complaint: cough, chest px Time Seen by Provider: 11/26/24 11:54 Source: patient Mode of arrival: Family Vehicle Limitations: no limitations History of Present Illness HPI narrative: Ms. Reed is a pleasant 51-year-old female with no reported past medical history who presents to the emergency department for cough since August. Patient states she would COVID in August and has a intermittent cough since then. However recently the cough has been getting worse and is now associated with chest pain. States that the chest pain is primarily only present when coughing however last night the chest pain did linger on the left side of her chest for a short time which is what prompted her emergency department arrival. States that she is going away this weekend so she wanted to be evaluated before travel. This time she states she is continuing to have a cough that has some pain in her chest but there is no pain at rest currently. She has been using an albuterol inhaler which is not resolved her symptoms. She denies fevers, chills, abdominal pain, nausea, vomiting. No history of smoking. Related Data Previous Rx's Medication Instructions Recorded albuterol sulfate 90 mcg/actuation 2 puff inhalation Q6H PRN 11/09/24 aerosol inhaler shortness of breath or wheezing #6.7 grams benzonatate 200 mg capsule 200 mg PO BID PRN cough #30 caps 11/19/24 dextromethorphan HBr 15 mg capsule 30 mg (2 x 15 mg) PO Q6-8H PRN 11/19/24 cough #60 caps doxycycline hyclate 100 mg capsule 100 mg PO BID 5 days #10 caps 11/26/24 prednisone 20 mg tablet 40 mg (2 x 20 mg) PO DAILY 5 days 11/26/24 #10 tabs Allergies Allergy/AdvReac Type Severity Reaction Status Date / Time codeine Allergy Severe hives Verified 11/26/24 11:03 omeprazole AdvReac Intermediate rash Uncoded 11/26/24 11:03 Review of Systems <Cleo Maynard PA-C - Last Filed: 11/26/24 14:06> Review of Systems ROS Unobtainable: All systems reviewed & are unremarkable except as noted in HPI and below Patient History <Cleo Maynard PA-C - Last Filed: 11/26/24 14:06> Medical History Impaired fasting blood sugar Dyslipidemia Low back pain Prolapse of female pelvic organs Social History Smoking Status: Former smoker alcohol intake: current Smoking Status: Former smoker tobacco type: cigarettes alcohol intake frequency: 3 or more drinks per day Exam <Cleo Maynard PA-C - Last Filed: 11/26/24 14:06> Narrative Exam Narrative: GENERAL: 59 year old patient appears stated age. Well-developed patient, in no acute distress. HEAD: Atraumatic. Normocephalic. EYES: No scleral icterus. No injection or drainage. NECK: Trachea midline. Cervical ROM intact. CARDIOVASCULAR: Regular rate and rhythm. RESPIRATORY: ?Nonlabored respirations. ?Speaking in clear, full sentences. Diffuse mild inspiratory wheezes and moderate expiratory wheezes in all lung last. ? EXTREMITIES: No edema or joint tenderness. NEURO: AOx3. ?Clear speech. ?Moves all 4 extremities appropriately. SKIN: No rash or erythema of visible areas Initial Vital Signs Initial Vital Signs: Vital Signs Pulse Rate 78 11/26/24 11:33 Pulse Oximetry 98 11/26/24 11:33 <Israel Rubio MD - Last Filed: 11/26/24 20:49> Initial Vital Signs Initial Vital Signs: Vital Signs Pulse Rate 78 11/26/24 11:33 Pulse Oximetry 98 11/26/24 11:33 Scores <Cleo Maynard PA-C - Last Filed: 11/26/24 14:06> HEART Score Heart Score history: Slightly Suspicious Heart Score EKG: Normal Heart Score Age: 45-64 years old Heart Score risk factors: No known risk factors Heart Score troponin: < or = to normal limit Heart Score Total: 1 <Israel Rubio MD - Last Filed: 11/26/24 20:49> HEART Score Heart Score Total: 1 Course <Cleo Maynard PA-C - Last Filed: 11/26/24 14:06> Orders Ordered: Discontinued Medications Albuterol/Ipratropium (Albuterol/Ipratropium 3 Ml Ampul) 3 ml INH Q20M LOKESH Stop: 03/21/25 13:56 Last Admin: 11/26/24 13:22 Dose: 3 ml Documented By: Admin: 11/26/24 13:22 Dose: 3 ml Documented By: Admin: 11/26/24 13:21 Dose: 3 ml Documented By: RONALD Aspirin (Aspirin 81 Mg Chew Tab) 324 mg PO NOW ONE Stop: 11/26/24 11:31 Last Admin: 11/26/24 13:09 Dose: Not Given Documented By: [place] Prednisone (Prednisone 20 Mg Tablet) 60 mg PO NOW ONE Stop: 11/26/24 13:09 Last Admin: 11/26/24 13:30 Dose: 60 mg Documented By: MICHAEL Vital Signs Vital signs: Vital Signs - 8 hr 11/26/24 13:22 11/26/24 13:50 Pulse Rate 73 69 Respiratory Rate 16 18 Blood Pressure 161/87 H Pulse Oximetry 100 99 Oxygen Delivery Method Room Air Room Air <Israel Rubio MD - Last Filed: 11/26/24 20:49> Orders Ordered: Discontinued Medications Albuterol/Ipratropium (Albuterol/Ipratropium 3 Ml Ampul) 3 ml INH Q20M [facility] Stop: 11/26/24 13:56 Last Admin: 11/26/24 13:22 Dose: 3 ml Documented By: Admin: 11/26/24 13:22 Dose: 3 ml Documented By: Admin: 11/26/24 13:21 Dose: 3 ml Documented By: RONALD Aspirin (Aspirin 81 Mg Chew Tab) 324 mg PO NOW ONE Stop: 11/26/24 11:31 Last Admin: 11/26/24 13:09 Dose: Not Given Documented By: NJ Prednisone (Prednisone 20 Mg Tablet) 60 mg PO NOW ONE Stop: 11/26/24 13:09 Last Admin: 11/26/24 13:30 Dose: 60 mg Documented By: MICHAEL Vital Signs Vital signs: Vital Signs - 8 hr 11/26/24 13:22 11/26/24 13:50 Pulse Rate 73 69 Respiratory Rate 16 18 Blood Pressure 161/87 H Pulse Oximetry 100 99 Oxygen Delivery Method Room Air Room Air MDM - Chest Pain <Cleo Maynard PA-C - Last Filed: 11/26/24 14:06> Medical Records Data Attestation: I reviewed the patient's medical records. Lab Data 11/26/24 11:38 11/26/24 11:38 Labs: Lab Results 11/26/24 Range/Units 11:38 WBC 9.1 (4.5-11.0) X10^3/uL RBC 4.46 (4.0-5.2) X10^6/uL Hgb 14.5 (12.0-16.0) g/dL Hct 42.6 (36-46) % MCV 95.6 (80-100) fL MCH 32.6 (26-34) PG MCHC 34.1 (30-36) % RDW 13.0 (11.6-14.8) % Plt Count 336 (150-400) X10^3/uL Neut % (Auto) 50.9 (50-75) % Lymph % (Auto) 33.1 (25-40) % [place] % (Auto) 5.6 (3-14) % Eos % (Auto) 9.5 H (2-4) % Baso % (Auto) 0.9 (0-2) % Neut # (Auto) 4600 (6669-4790) /uL Lymph # (Auto) 3000 (3498-6052) /uL [place] # (Auto) 500 (0-900) /uL Eos # (Auto) 900 H (0-450) /uL Baso # (Auto) 100 (0-100) /uL PT 10.2 (9.4-12.5) SECONDS INR 0.9 (0.9-1.3) APTT 33 (25.1-36.5) SECONDS Sodium 137 (137-145) mmol/L Potassium 4.0 (3.4-5.1) mmol/L Chloride 104 (98-107) mmol/L Carbon Dioxide 23 (22-32) mmol/L BUN 19 H (7-17) mg/dL Creatinine 0.79 (0.52-1.04) mg/dL Estimated GFR > 60 (>60) mL/min BUN/Creatinine Ratio 24.1 H (6-22) Glucose 113 H (70-100) mg/dL Calcium 9.1 (8.4-10.2) mg/dL Magnesium 1.7 (1.6-2.3) mg/dL Total Bilirubin 0.9 (0.2-1.3) mg/dL AST 27 (14-36) IU/L ALT 19 (<35) IU/L Alkaline Phosphatase 59 (38-126) U/L Total Creatine Kinase 70 (30-135) U/L Troponin I < 0.012 (0.01-0.034) ng/mL NT-Pro-B Natriuret Pep 74 (<125) pg/mL Total Protein 7.5 (6.3-8.2) g/dL Albumin 4.6 (3.5-5.0) g/dL Globulin 2.9 (1.7-4.1) g/dL Albumin/Globulin Ratio 1.6 (1.0-2.8) Lipase 78 (23-300) U/L Imaging Data Chest x-ray: Radiologist's Impression: 1PROCEDURE: XR CHEST 1V INDICATIONS: chest pain TECHNIQUE: One view of the chest was acquired. COMPARISON: [facility], CR, XR CHEST 2V, 11/19/2024, 14:42. [facility], CR, XR CHEST 2V, 09/09/2024, 16:26. FINDINGS AND IMPRESSION: On this single view study, no consolidation or pleural effusion is identified. Normal heart size. Mild degenerative osseous changes. ECG Data Interpretation: ECG reveals normal sinus rhythm with a rate of 72, QTC of 440 MDM Narrative Medical decision making narrative: 51-year-old female with no reported past medical history who presents to the emergency department for cough since August now with chest pain. Differential diagnosis includes but is not limited to ACS/MO, pneumonia, bronchitis, reactive airway disease, etc. On exam the patient is in no acute distress, nontoxic appearing, vital signs appropriate except for mildly elevated blood pressure. At my time evaluation, patient already had chest x-ray and labs performed, she is requesting discharge home. However physical exam reveals significant wheezing likely the culprit of the patient's continuing cough and occasional chest pain. We will treat with DuoNeb x3, oral prednisone. Chest x-ray is negative for pneumonia, troponin is negative, no elevated white blood cell count. Patient feeling much better after DuoNeb x3 and prednisone. Repeat lung auscultation reveals continued faint expiratory wheezes. I also now noticed some coarse breath sounds in the left lower lobe. Patient feels much better and is requesting discharge home. I will treat her with a course of doxycycline for suspected atypical pneumonia given coarse breath sounds, persistent productive cough. We will also treat wheezing with 5 additional days of prednisone. Respiratory therapy evaluated the patient and provided her with a spacer to use with her albuterol inhaler. I advised she follow up with her primary care doctor promptly and return to the emergency department if she does not have any improvement the next 48 hours. Advised she return to the emergency department immediately if she develops any new worsening symptoms or other concerns. She verbalized understanding all information is happy with this plan. Vital signs within normal limits, no respiratory distress. She is stable for discharge home. <Israel Rubio MD - Last Filed: 11/26/24 20:49> Lab Data Labs: Lab Results 11/26/24 Range/Units 11:38 WBC 9.1 (4.5-11.0) X10^3/uL RBC 4.46 (4.0-5.2) X10^6/uL Hgb 14.5 (12.0-16.0) g/dL Hct 42.6 (36-46) % MCV 95.6 (80-100) fL MCH 32.6 (26-34) PG MCHC 34.1 (30-36) % RDW 13.0 (11.6-14.8) % Plt Count 336 (150-400) X10^3/uL Neut % (Auto) 50.9 (50-75) % Lymph % (Auto) 33.1 (25-40) % [place] % (Auto) 5.6 (3-14) % Eos % (Auto) 9.5 H (2-4) % Baso % (Auto) 0.9 (0-2) % Neut # (Auto) 4600 (2426-5155) /uL Lymph # (Auto) 3000 (0576-7228) /uL [place] # (Auto) 500 (0-900) /uL Eos # (Auto) 900 H (0-450) /uL Baso # (Auto) 100 (0-100) /uL PT 10.2 (9.4-12.5) SECONDS INR 0.9 (0.9-1.3) APTT 33 (25.1-36.5) SECONDS Sodium 137 (137-145) mmol/L Potassium 4.0 (3.4-5.1) mmol/L Chloride 104 (98-107) mmol/L Carbon Dioxide 23 (22-32) mmol/L BUN 19 H (7-17) mg/dL Creatinine 0.79 (0.52-1.04) mg/dL Estimated GFR > 60 (>60) mL/min BUN/Creatinine Ratio 24.1 H (6-22) Glucose 113 H (70-100) mg/dL Calcium 9.1 (8.4-10.2) mg/dL Magnesium 1.7 (1.6-2.3) mg/dL Total Bilirubin 0.9 (0.2-1.3) mg/dL AST 27 (14-36) IU/L ALT 19 (<35) IU/L Alkaline Phosphatase 59 (38-126) U/L Total Creatine Kinase 70 (30-135) U/L Troponin I < 0.012 (0.01-0.034) ng/mL NT-Pro-B Natriuret Pep 74 (<125) pg/mL Total Protein 7.5 (6.3-8.2) g/dL Albumin 4.6 (3.5-5.0) g/dL Globulin 2.9 (1.7-4.1) g/dL Albumin/Globulin Ratio 1.6 (1.0-2.8) Lipase 78 (23-300) U/L Discharge Plan Departure Patient Disposition: Home Clinical Impression: Subacute cough, Diffuse wheezing Instructions: DI for Atypical Pneumonia Activity Restrictions/Additional Instructions: Thank you for coming to the emergency department. Today you were evaluated for a cough that has been going on since August now with associated chest pain. Your lab work was overall reassuring and your chest x-ray was normal however you had diffuse wheezing on your lung exam. You were treated with a nebulizer 3 times and oral steroids. I have prescribed you oral steroids to continue at home in addition to a course of antibiotics for atypical pneumonia. Please continue using your albuterol inhaler as needed. Follow up with your primary care doctor as soon as possible for further evaluation and for referral to a case assistant. Please return to the emergency department if you develop any new or worsening symptoms or your symptoms do not improve in 48-72 hours. Please follow up with your primary care doctor within the next 2-3 days for ER follow-up. (If you do not have a PCP you can call [phone]. ?to schedule an appointment with an [facility] Primary Care Provider) IF YOU DEVELOP ANY NEW OR WORSENING SYMPTOMS, RETURN TO THE ER! Please read the attached instructions, they highlight more specific treatments and interventions for you at home. Thank you for letting me participate in your care, Cleo Maynard PA-C Prescriptions: New doxycycline hyclate 100 mg capsule 100 mg PO BID 5 Days Qty: 10 0RF prednisone 20 mg tablet 40 mg PO DAILY 5 Days Qty: 10 0RF Rx Instructions: Start 11/27/24 No Action albuterol sulfate 90 mcg/actuation HFA aerosol inhaler 2 puff inhalation Q6H PRN (Reason: shortness of breath or wheezing) Qty: 6.7 1RF benzonatate 200 mg capsule 200 mg PO BID PRN (Reason: cough) Qty: 30 0RF dextromethorphan HBr 15 mg capsule 30 mg PO Q6-8H PRN (Reason: cough) Qty: 60 0RF Referrals: Rah Macias ARNP [Primary Care Provider] - Stand Alone Forms: Patient Portal/API/Survey ED Sign-out <Israel Rubio MD - Last Filed: 11/26/24 20:49> Cosign ED Attending Kassi Attestation: I was immediately available in the department for consultation. This documentation has been reviewed and I agree with assessment and plan. Supervised by Israel Rubio MD
[2024-11-26] MEDS: ALBUTEROL/IPRATROPIUM 3 ML AMPUL INH ×3 (13:21→13:22)
[2024-11-26 13:22] VITALS: PULSE 73; RESP 16; O2SAT 100
[2024-11-26] MEDS: predniSONE 20 MG TABLET 60 MG PO (13:30)
[2024-11-26 13:50] VITALS: BP 161/87; PULSE 69; RESP 18; O2SAT 99
== END 2024-11-26 14:15 | disposition home or self-care (01) ==
PROVIDERS: Emergency Medicine; Emergency Provider Physician Assistant; PCP Registered Nurse Diabetes Educator
DX: R05.2 Subacute cough (principal); R06.2 Wheezing; R07.9 Chest pain, unspecified; Z86.16 Personal history of COVID-19
CPT/HCPCS: 71045; 80053; 82550; 83690; 83735; 83880; 84484; 85025; 85610; 85730; 93005; 94640; 99283; 99284

== ENCOUNTER → 2024-12-09 08:57 | Outpatient (CLI) | payer OTHER, SELFPAY | LOC: LAB 09:00 | PROVIDERS: PCP Registered Nurse Diabetes Educator; Referring Provider Nurse Practitioner Family; Visit Provider Nurse Practitioner Family | DX: R06.2 Wheezing (principal); R05.2 Subacute cough | CPT/HCPCS: 87070; 87205 ==

== ENCOUNTER → 2024-12-23 06:46 | Outpatient (CLI) | payer OTHER, SELFPAY | LOC: RESP 06:46 | PROVIDERS: PCP Registered Nurse Diabetes Educator; Referring Provider Nurse Practitioner Family; Visit Provider Nurse Practitioner Family | DX: R06.2 Wheezing (principal); R05.2 Subacute cough; R06.02 Shortness of breath | CPT/HCPCS: 94060; 94726; 94729 ==